=== PATIENT | female | born 1940 | race Caucasian/White ===

== ENCOUNTER 2018-04-08 17:48 | Emergency (ER) | payer MEDICARE ==
[~2018-04-08] VITALS: Ht 162.6 cm; Wt 100.0 kg
[2018-04-08 18:08] VITALS: BP 161/98
[2018-04-08 18:55] LABS: BASOPHILS # (AUTO) 0.01 x10^3/uL (0-0.1); BASOPHILS % (AUTO) 0 % (0-1); EOSINOPHILS # (AUTO) 0.11 x10^3/uL (0-0.4); EOSINOPHILS % (AUTO) 2 % (1-7); LYMPHOCYTES % (AUTO) 12 % (22-44); MD NO; MEAN CORPUSCULAR HEMOGLOBIN 29.7 pg (27.0-34.8); MEAN CORPUSCULAR HGB CONC 33.2 g/dL (32.4-35.8); MEAN CORPUSCULAR VOLUME 89.6 fL (80-100); MEAN PLATELET VOLUME 8.1 fL (7.4-10.4); MONOCYTES # (AUTO) 0.41 x10^3/uL (0.2-0.8); MONOCYTES % (AUTO) 8 % (2-9); NEUTROPHILS # (AUTO) 4.04 x10^3/uL (1.8-6.8); NEUTROPHILS % (AUTO) 78 % (42-75); PLATELET COUNT 256 x10^3/uL (130-400); RED BLOOD COUNT 4.04 x10^6/uL (3.82-5.3); RED CELL DISTRIBUTION WIDTH 14.9 % (9.6-15.2)
[2018-04-08 19:05] LABS: ALANINE AMINOTRANSFERASE 24 U/L (12-78); ALBUMIN 3.7 g/dL (3.4-5.0); ANION GAP 7 mmol/L (5-15); CALCIUM 9.1 mg/dL (8.5-10.1); CHLORIDE 109 mmol/L (98-107); CREATININE 0.67 mg/dL (0.55-1.02); INTERNATIONAL NORMALIZED RATIO 0.95 (0.93-1.1); PROTHROMBIN TIME 10.1 Seconds (9.6-11.5)
[2018-04-08 19:09] LABS: ALKALINE PHOSPHATASE 100 U/L (45-117); BILIRUBIN,TOTAL 0.6 mg/dL (0.2-1.0); TOTAL PROTEIN 7.1 g/dL (6.4-8.2); TROPONIN I < 0.015 ng/mL (0.000-0.045)
== END 2018-04-08 20:13 | disposition home or self-care (01) ==
LOC: ED 18:51
DX: M54.2 Cervicalgia (principal); I10 Essential (primary) hypertension
CPT/HCPCS: 36415; 71045; 80053; 84443; 84484; 85025; 85610; 85730; 93005; 99284

== ENCOUNTER 2018-05-11 08:01 | Inpatient (IN) | payer MEDICARE ==
[~2018-05-11] VITALS: Ht 162.6 cm; Wt 101.9 kg
[2018-05-11] MEDS ORDERED: ACETAMINOPHEN 500 MG TABLET PO ONE (08:30)
[2018-05-11] MEDS ORDERED: ACETAMINOPHEN 500 MG TABLET ONE (08:42)
[2018-05-11] MEDS ORDERED: ONDANSETRON ODT 4 MG ONE (08:53)
[2018-05-11 08:56] LABS: BASOPHILS % (AUTO) 0 % (0-1); EOSINOPHILS # (AUTO) 0.06 x10^3/uL (0-0.4); EOSINOPHILS % (AUTO) 1 % (1-7); LYMPHOCYTES # (AUTO) 0.36 x10^3/uL (1-3.4); LYMPHOCYTES % (AUTO) 5 % (22-44); MD NO; MEAN CORPUSCULAR HEMOGLOBIN 28.5 pg (27.0-34.8); MEAN CORPUSCULAR HGB CONC 31.8 g/dL (32.4-35.8); MEAN CORPUSCULAR VOLUME 89.5 fL (80-100); MEAN PLATELET VOLUME 8.3 fL (7.4-10.4); MONOCYTES # (AUTO) 0.36 x10^3/uL (0.2-0.8); MONOCYTES % (AUTO) 5 % (2-9); NEUTROPHILS # (AUTO) 7.21 x10^3/uL (1.8-6.8); NEUTROPHILS % (AUTO) 90 % (42-75); PLATELET COUNT 211 x10^3/uL (130-400); RED CELL DISTRIBUTION WIDTH 15.3 % (9.6-15.2)
--- NOTE | 2018-05-11 08:59 | NUR ---
Pt presents for SOB, flank pain, and vomiting. Pt states she noticed cloudy and smelly urine 6 days ago. URI x 4 days, worsening. Genrealized body pain 2 days ago. Nausea and vomiting yesterday. No diarrhea. VSS at this time.
[2018-05-11] MEDS ORDERED: ONDANSETRON ODT 4 MG PO ONE (09:00)
[2018-05-11 09:09] LABS: ALBUMIN 3.4 g/dL (3.4-5.0); ANION GAP 7 mmol/L (5-15); CALCIUM 8.6 mg/dL (8.5-10.1); CHLORIDE 108 mmol/L (98-107)
[2018-05-11 09:13] LABS: ALANINE AMINOTRANSFERASE 22 U/L (12-78); ALKALINE PHOSPHATASE 89 U/L (45-117); BILIRUBIN,TOTAL 0.4 mg/dL (0.2-1.0); CREATININE 0.68 mg/dL (0.55-1.02)
[2018-05-11 09:41] LABS: CULTURE INDICATED? YES; MICROSCOPIC INDICATED
[2018-05-11] MEDS ORDERED: CEFTRIAXONE PMX 1GM/50ML 50 ML IV ONE (10:00)
[2018-05-11] MEDS ORDERED: AZITHROMYCIN 500 MG in SODIUM CHLORIDE 0.9% 250 ML IV ONE (10:00)
[2018-05-11] MEDS ORDERED: ALBUTEROL/IPRATROPIUM 2.5MG/0.5MG, 3 ML NPPB ONE (10:00)
[2018-05-11] MEDS ORDERED: CEFTRIAXONE PMX 1GM/50ML 50 ML ONE (10:15)
[2018-05-11 10:29] LABS: RAPID INFLUENZA A Negative (Negative); RAPID INFLUENZA B Negative (Negative)
[2018-05-11] MEDS ORDERED: ALBUTEROL/IPRATROPIUM 2.5MG/0.5MG, 3 ML ONE (10:45)
[2018-05-11] MEDS ORDERED: methylPREDNISolone SOD SUCC 125 MG/2 ML IVPush SCH (11:00)
[2018-05-11] MEDS ORDERED: methylPREDNISolone SOD SUCC 125 MG/2 ML ONE (11:00)
[2018-05-11] MEDS: SODIUM CHLORIDE 0.9% 1,000 ML IV SCH (11:33)
[2018-05-11] MEDS ORDERED: GUAIFENESIN/DM 200-20MG, 10ML UDC PO PRN (12:00)
[2018-05-11] MEDS ORDERED: BISACODYL 10 MG SUPP PR PRN (12:00)
[2018-05-11] MEDS ORDERED: ONDANSETRON ODT 4 MG PO PRN (12:00)
[2018-05-11] MEDS: LEVOFLOXACIN/PMX 750MG/150ML 150 ML IV SCH (12:00)
[2018-05-11] MEDS ORDERED: GUAIFENESIN/COD200MG-20MG/10ML LIQUID PO PRN (12:00)
[2018-05-11] MEDS ORDERED: POLYETHYLENE GLYCOL 17 GM PACKET PO PRN (12:00)
[2018-05-11] MEDS ORDERED: hydrALAzine 20 MG/ML, 1ML IVPush PRN (12:00)
[2018-05-11] MEDS ORDERED: ONDANSETRON 2MG/ML, 2ML IVPush PRN (12:00)
[2018-05-11] MEDS ORDERED: LIDODERM 5% PATCH TD PRN (12:00)
[2018-05-11] MEDS ORDERED: ZOLPIDEM 5MG TABLET PO PRN (12:00)
[2018-05-11] MEDS ORDERED: ACETAMINOPHEN 325 MG TABLET PO PRN (12:00)
[2018-05-11] MEDS ORDERED: DOCUSATE 100 MG CAPSULE PO PRN (12:00)
[2018-05-11] MEDS ORDERED: LEVOFLOXACIN/PMX 750MG/150ML 150 ML ONE (12:27)
[2018-05-11] MEDS ORDERED: ENOXAPARIN 40 MG/0.4 ML ONE (12:28)
[2018-05-11] MEDS ORDERED: methylPREDNISolone SOD SUCC 125 MG/2 ML IVPush ONE (12:30)
[2018-05-11] MEDS: ENOXAPARIN 40 MG/0.4 ML SQ SCH (12:33)
[2018-05-11 12:38] LABS: HCT (SEDRATE) 37.6 % (34.6-47.8)
[2018-05-11] MEDS ORDERED: ACETAMINOPHEN 325 MG TABLET ONE (12:41)
[2018-05-11 12:42] LABS: FREE T4 (FREE THYROXINE) 0.98 ng/dL (0.76-1.46); THYROID STIMULATING HORMONE 2.3 mIU/L (0.358-3.740)
[2018-05-11 12:44] LABS: HEMOGLOBIN A1C 5.8 % (4.2-6.3)
--- NOTE | 2018-05-11 13:37 | NUR ---
Provided report to KAREN Wilkinson. All questions answered. Pt ready to transfer to floor from ED.
[2018-05-11] MEDS ORDERED: ALBUTEROL/IPRATROPIUM 2.5MG/0.5MG, 3 ML NPPB PRN (14:30)
[2018-05-11] MEDS: methylPREDNISolone SOD SUCC 125 MG/2 ML IVPush SCH (18:32)
[2018-05-11] MEDS: ALBUTEROL/IPRATROPIUM 2.5MG/0.5MG, 3 ML NPPB SCH (19:10)
[2018-05-11 19:30] VITALS: BP 132/67
[2018-05-11] MEDS: FAMOTIDINE 20 MG TABLET PO SCH (20:28)
[2018-05-12] MEDS: SODIUM CHLORIDE 0.9% 1,000 ML IV SCH ×2 (00:27→12:19)
[2018-05-12] MEDS: methylPREDNISolone SOD SUCC 125 MG/2 ML IVPush SCH ×4 (00:27→19:18)
[2018-05-12 01:13] VITALS: BP 118/66
[2018-05-12 06:31] LABS: BASOPHILS % (AUTO) 0 % (0-1); EOSINOPHILS % (AUTO) 0 % (1-7); LYMPHOCYTES # (AUTO) 0.43 x10^3/uL (1-3.4); LYMPHOCYTES % (AUTO) 7 % (22-44); MD NO; MEAN CORPUSCULAR HGB CONC 32.7 g/dL (32.4-35.8); MEAN CORPUSCULAR VOLUME 88.7 fL (80-100); MEAN PLATELET VOLUME 8.7 fL (7.4-10.4); MONOCYTES # (AUTO) 0.12 x10^3/uL (0.2-0.8); MONOCYTES % (AUTO) 2 % (2-9); NEUTROPHILS # (AUTO) 5.89 x10^3/uL (1.8-6.8); NEUTROPHILS % (AUTO) 92 % (42-75); PLATELET COUNT 192 x10^3/uL (130-400); RED BLOOD COUNT 3.77 x10^6/uL (3.82-5.3); RED CELL DISTRIBUTION WIDTH 15.2 % (9.6-15.2)
[2018-05-12 06:32] LABS: ANION GAP 8 mmol/L (5-15); CALCIUM 8.9 mg/dL (8.5-10.1); CHLORIDE 111 mmol/L (98-107); CREATININE 0.58 mg/dL (0.55-1.02)
[2018-05-12] MEDS: ALBUTEROL/IPRATROPIUM 2.5MG/0.5MG, 3 ML NPPB SCH ×4 (07:00→20:00)
[2018-05-12 07:47] VITALS: BP 130/70
[2018-05-12] MEDS: FAMOTIDINE 20 MG TABLET PO SCH ×3 (08:00→20:53)
[2018-05-12 12:04] VITALS: BP 123/70
[2018-05-12] MEDS: LEVOFLOXACIN/PMX 750MG/150ML 150 ML IV SCH (12:18)
[2018-05-12] MEDS: ENOXAPARIN 40 MG/0.4 ML SQ SCH (12:19)
[2018-05-12 19:38] VITALS: BP 132/78
[2018-05-13] MEDS: methylPREDNISolone SOD SUCC 125 MG/2 ML IVPush SCH ×3 (01:25→11:42)
[2018-05-13] MEDS: SODIUM CHLORIDE 0.9% 1,000 ML IV SCH ×2 (01:25→12:24)
[2018-05-13 02:00] VITALS: BP 137/89
[2018-05-13 06:29] LABS: BASOPHILS % (AUTO) 0 % (0-1); EOSINOPHILS % (AUTO) 1 % (1-7); LYMPHOCYTES # (AUTO) 0.44 x10^3/uL (1-3.4); LYMPHOCYTES % (AUTO) 5 % (22-44); MD NO; MEAN CORPUSCULAR HEMOGLOBIN 29.1 pg (27.0-34.8); MEAN CORPUSCULAR HGB CONC 32.9 g/dL (32.4-35.8); MEAN CORPUSCULAR VOLUME 88.7 fL (80-100); MEAN PLATELET VOLUME 8.4 fL (7.4-10.4); MONOCYTES # (AUTO) 0.34 x10^3/uL (0.2-0.8); MONOCYTES % (AUTO) 4 % (2-9); NEUTROPHILS # (AUTO) 7.87 x10^3/uL (1.8-6.8); NEUTROPHILS % (AUTO) 90 % (42-75); PLATELET COUNT 186 x10^3/uL (130-400); RED BLOOD COUNT 3.53 x10^6/uL (3.82-5.3); RED CELL DISTRIBUTION WIDTH 15.3 % (9.6-15.2)
[2018-05-13 06:35] LABS: ANION GAP 3 mmol/L (5-15); CALCIUM 8.9 mg/dL (8.5-10.1); CHLORIDE 115 mmol/L (98-107)
[2018-05-13 06:37] LABS: CREATININE 0.62 mg/dL (0.55-1.02)
[2018-05-13] MEDS: ALBUTEROL/IPRATROPIUM 2.5MG/0.5MG, 3 ML NPPB SCH ×2 (07:00→11:00)
[2018-05-13 07:49] VITALS: BP 132/83
[2018-05-13] MEDS: LEVOFLOXACIN/PMX 750MG/150ML 150 ML IV SCH (11:38)
[2018-05-13] MEDS: ENOXAPARIN 40 MG/0.4 ML SQ SCH (11:44)
[2018-05-13 12:51] VITALS: BP 133/73
[2018-05-13] MEDS ORDERED: ACET325T14 PO (13:15)
[2018-05-13] MEDS ORDERED: METH4TAB2 PO (13:15)
[2018-05-13] MEDS ORDERED: LEVO750T26 PO (13:15)
[2018-05-13] MEDS ORDERED: FAMO20TA7 PO (13:15)
== END 2018-05-13 14:25 | disposition home or self-care (01) | DRG 193 ==
LOC: ED 08:44 → EDIP 11:12 → 4WST 14:17 → DCLOUNGE 05-13 14:10
PROVIDERS: ADMIT Internal Medicine; ATTEND Internal Medicine
PROC: 5A09357 Assistance with Respiratory Ventilation, Less than 24 Consecutive Hours, Continuous Positive Airway Pressure (ICD-10-PCS; principal; 2018-05-13)
DX: J18.9 Pneumonia, unspecified organism (principal); J96.20 Acute and chronic respiratory failure, unspecified whether with hypoxia or hypercapnia; J44.1 Chronic obstructive pulmonary disease with (acute) exacerbation; J44.0 Chronic obstructive pulmonary disease with (acute) lower respiratory infection; N39.0 Urinary tract infection, site not specified; F32.9 Major depressive disorder, single episode, unspecified; I10 Essential (primary) hypertension; Z82.49 Family history of ischemic heart disease and other diseases of the circulatory system; Z99.81 Dependence on supplemental oxygen; Z98.84 Bariatric surgery status
CPT/HCPCS: 36415; 71045; 71250; 80048; 80053; 81001; 83036; 83605; 83735; 84100; 84145; 84439; 84443; 85025; 85651; 87040; 87077; 87086; 87186; 87400; 93005; 94640; 96365; 96367; 96375; 99285; G0378; J0456; J0696; J1650; J1956; J7620; Q0162; J2930; J7030; J7050

== ENCOUNTER 2020-10-15 17:06 | Emergency (ER) | payer MEDICARE ==
[~2020-10-15] VITALS: Ht 165.1 cm; Wt 103.0 kg
[~2020-10-15 17:06] MED LIST: ACET325T14 PO; FAMO20TA7 PO; LEVO750T26 PO; METH4TAB2 PO
--- NOTE | 2020-10-15 17:17 | NUR ---
PT BIBA FROM HOME FOR C/O RIVAS & NAUSEA WELL L-FOOT PAIN. 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 PT CHANGED INTO GOWN, MONITORS IN PLACE. CALL LIGHT WITHIN REACH. DAUGHTER AT BS.
[2020-10-15] MEDS ORDERED: METOCLOPRAMIDE 5 MG/ML, 2ML ONE (17:24)
[2020-10-15] MEDS ORDERED: METOCLOPRAMIDE 5 MG/ML, 2ML IVPush ONE (17:30)
[2020-10-15] MEDS ORDERED: SODIUM CHLORIDE FLUSH 10ML SYR IVF ONE (17:30)
--- NOTE | 2020-10-15 17:44 | NUR ---
PT TO CT
[2020-10-15 17:46] LABS: BASOPHILS % (AUTO) 1 % (0-1); EOSINOPHILS % (AUTO) 2 % (1-7); LYMPHOCYTES % (AUTO) 10 % (22-44); MEAN CORPUSCULAR HEMOGLOBIN 30.7 pg (27.0-34.8); MEAN PLATELET VOLUME 8.4 fL (7.4-10.4); MONOCYTES % (AUTO) 7 % (2-9); NEUTROPHILS % (AUTO) 81 % (42-75); PLATELET COUNT 170 x10^3/uL (130-400); RED BLOOD COUNT 3.93 x10^6/uL (3.82-5.3); RED CELL DISTRIBUTION WIDTH 16.1 % (9.6-15.2)
[2020-10-15 17:50] LABS: ALBUMIN 3.1 g/dL (3.4-5.0); ANION GAP 3 mmol/L (5-15); CALCIUM 8.7 mg/dL (8.5-10.1); CHLORIDE 109 mmol/L (98-107); CREATININE 0.55 mg/dL (0.55-1.02)
[2020-10-15 17:58] LABS: MICROSCOPIC AUTO
--- NOTE | 2020-10-15 18:19 | NUR ---
PT SLEEPING ON GURNEY, RESPIRATIONS EVEN AND UNLABORED. NADN/VSS. CALL LIGHT WITHIN REACH. DAUGHTER AT BS. NO NEEDS AT THIS TIME
[2020-10-15 18:21] LABS: HCT (SEDRATE) 36.5 % (34.6-47.8)
[2020-10-15] MEDS ORDERED: KETOROLAC 30 MG/1 ML ONE (18:41)
--- NOTE | 2020-10-15 18:53 | NUR ---
REPORT TO KAREN GEIGER
[2020-10-15] MEDS ORDERED: KETOROLAC 30 MG/1 ML IVPush ONE (19:00)
[2020-10-15 19:35] VITALS: BP 146/91
== END 2020-10-15 19:37 | disposition home or self-care (01) ==
LOC: ED 17:52
DX: G44.219 Episodic tension-type headache, not intractable (principal); R11.2 Nausea with vomiting, unspecified; I10 Essential (primary) hypertension; J44.9 Chronic obstructive pulmonary disease, unspecified
CPT/HCPCS: 36415; 70450; 80048; 81001; 82040; 85025; 85651; 96374; 96375; 99284; J1885; J2765